=== PATIENT | male | born 2000 | race Caucasian/White ===

== ENCOUNTER 2019-03-22 21:46 | Emergency (ER) | payer BC ==
[2019-03-22] MEDS ORDERED: EPINEPHrine 1 MG/ML SDV SUBCUT ONE (21:49)
[2019-03-22] MEDS ORDERED: diphenhydrAMINE 50 MG/ML SDV IVPUSH ONE (21:49)
[2019-03-22] MEDS ORDERED: methylPREDNISolone Sodium Succinate 125 MG/2 ML SDV IVPUSH ONE (21:49)
--- NOTE | 2019-03-22 21:50 | EDM.PDOC ---
ED HPI GENERAL MEDICAL PROBLEM - General Stated Complaint: ALLERGIC REACTION Time Seen by Provider: 03/22/19 21:46 Source of Information: Reports: Patient History Limitations: Reports: No Limitations - History of Present Illness INITIAL COMMENTS - FREE TEXT/NARRATIVE: 18-year-old male stung by an insect on the medial aspect of his left leg within the last 4 hours, is now developing a generalized allergic reaction with rash, nausea and vomiting, and swollen lips. No shortness of breath, no tongue swelling or difficulty breathing. No previous reactions. Onset: Gradual (Over the past 4 hours) Associated Symptoms: Reports: Malaise, Nausea/Vomiting, Weakness. 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 Denies: Fever, Chills HEENT: Reports: No Symptoms Respiratory: Denies: Shortness of Breath Cardiovascular: Denies: Chest Pain GI/Abdominal: Reports: Nausea, Vomiting. Denies: Abdominal Pain Skin: Reports: Rash, Erythema, Urticaria ED EXAM GENERAL NO PERIP PULSE - Physical Exam Exam: See Below Exam Limited By: No Limitations General Appearance: Alert, Anxious, Mild Distress, Other (Persistent nausea and vomiting) Eye Exam: Bilateral Eye: Periorbital Changes (A small amount of periorbital edema and erythema) Throat/Mouth: Normal Inspection Head: Facial Swelling (Slight facial swelling and erythema diffusely) Respiratory/Chest: No Respiratory Distress, Lungs Clear Extremities: Other (Widespread urticaria, and a very erythematous irregular well ordered reaction on the inner aspect of the left thigh from an insect bite or sting) Course - Vital Signs Last Recorded V/S: Last Vital Signs Temp 96.9 F 03/22/19 21:48 Pulse 102 H 03/22/19 22:45 Resp 22 H 03/22/19 21:48 BP 125/73 03/22/19 22:45 Pulse Ox 97 03/22/19 22:45 - Orders/Labs/Meds Meds: Medications Discontinued Medications Generic Name Dose Route Start Last Admin Trade Name Gordon PRN Reason Stop Dose Admin Diphenhydramine HCl 50 mg 03/22/19 21:49 03/22/19 21:53 Benadryl IVPUSH 03/22/19 21:50 50 mg ONETIME ONE Administration Epinephrine HCl 0.3 mg 03/22/19 21:49 03/22/19 22:02 Adrenalin SUBCUT 03/22/19 21:50 0.3 mg ONETIME ONE Administration Methylprednisolone Sodium Succinate 125 mg 03/22/19 21:49 03/22/19 21:56 Solu-Medrol IVPUSH 03/22/19 21:50 125 mg ONETIME ONE Administration - Re-Assessments/Exams Free Text/Narrative Re-Assessment/Exam: 03/22/19 23:33 0.3 mg of subcutaneous epinephrine was given, an IV started and the patient given 125 mg of Solu-Medrol and 50 mg of IV Benadryl. This resolved his nausea and vomiting and he rested quietly for over an hour. The symptoms almost completely resolved by discharge other than the persistent erythema of the left thigh. He was given a prescription for an EpiPen to use as directed and follow up with his primary providers when he gets home for possible allergy testing. Departure - Departure Time of Disposition: 23:40 Disposition: Home, Self-Care 01 Clinical Impression: Allergic reaction to bee sting - Discharge Information Instructions: Bee, Wasp, or Hornet Sting, Adult Referrals: PCP,None [Primary Care Provider] - Forms: ED Department Discharge Care Plan Goals: Continue with Benadryl 25-50 mg every 4 hours for persistent rash or itching. Fill your prescription for EpiPen and use as directed if needed. Return anytime if difficulty breathing or you develop other concerns.
== END 2019-03-22 23:40 | disposition home or self-care (01) ==
LOC: JP.ED 21:46
DX: T63.441A Toxic effect of venom of bees, accidental (unintentional), initial encounter (principal); Z88.1 Allergy status to other antibiotic agents; Z79.899 Other long term (current) drug therapy
CPT/HCPCS: 96374; 99282; J0171; J1200; J2930